=== PATIENT | female | born 1990 | race Caucasian/White ===

== ENCOUNTER 2022-09-30 12:54 | Emergency (ER) | payer SELFPAY ==
[~2022-09-30] VITALS: Ht 165.1 cm; Wt 85.0 kg
[2022-09-30 12:58] VITALS: BP 152/93
[2022-09-30] MEDS ORDERED: ACETAMINOPHEN 325MG TABLET PO ONE (13:00)
[2022-09-30] MEDS ORDERED: IBUP-2029 MT (14:46)
== END 2022-09-30 14:55 | disposition home or self-care (01) ==
LOC: ER 13:58
DX: S70.02XA Contusion of left hip, initial encounter (principal); X58.XXXA Exposure to other specified factors, initial encounter; Y93.89 Activity, other specified; Y92.89 Other specified places as the place of occurrence of the external cause; Y99.8 Other external cause status
CPT/HCPCS: 73502; 81025; 99283